=== PATIENT | male | born 1960 | race Caucasian/White ===

== ENCOUNTER 2023-11-13 21:39 | Emergency (ER) | payer OTHER, SELFPAY ==
[2023-11-13 21:44] VITALS: BP 159/85; PULSE 81; RESP 18; TEMP 36.6; O2SAT 98; BMI 30.8
--- NOTE | 2023-11-13 21:49 | ED.ABDPAIN ---
HPI - Abdominal Pain General Time Seen by Provider: 21:49 Date Seen: 11/13/23 Chief Complaint: Abdominal Pain Stated Complaint: Abdominal Pain Time Seen by Provider: 11/13/23 21:40 Source: patient and RN notes reviewed Mode of arrival: ambulatory Limitations: no limitations History of Present Illness HPI narrative: Patient is a 63-year-old male coming to the ER with concern of lower abdominal pain that is worsened throughout the day. He states yesterday he felt a little crampy. He passed just a small amount of stool today, feels like he cannot defecate. He has noticed urinary frequency today. No dysuria or hematuria. He is felt a little chilled but no noted fevers. He has had a left inguinal hernia surgery 20 years ago. He notes the pain is periumbilical and then into the lower abdomen. He did eat dinner around 6:00 p.m., is maybe feeling a little nauseated. He has felt like he is burping more today, more this evening. He is feeling bloated. He denies any history of heart or lung problems. He is treated for hypertension and hyperlipidemia. Besides the left inguinal hernia repair, has had left rotator cuff surgery, is awaiting repair of his right rotator cuff. He has had a right knee replacement. Social alcohol use, last use a couple of beers yesterday while watching football. No tobacco products. Current medicines reported are 81 mg aspirin daily, atorvastatin, losartan, metoprolol. MD elicited complaint: abdominal pain Related Data Home Medications Medication Instructions Recorded Confirmed aspirin 81 mg capsule 81 mg PO DAILY 11/13/23 11/13/23 atorvastatin .ROUTE 11/13/23 losartan .ROUTE 11/13/23 metoprolol tartrate .ROUTE 11/13/23 Allergies Allergy/AdvReac Type Severity Reaction Status Date / Time No Known Drug Allergies Allergy Verified 11/13/23 21:43 Review of Systems Status of ROS Reports: 6 or more systems reviewed and unremarkable except as noted in History and below Exam Const: Vital Signs, click to edit/add: Vital Signs - 24 hr 11/13/23 21:44 11/13/23 22:42 11/13/23 23:35 Temperature 97.9 F Pulse Rate [Pulse Oximeter] 81 Respiratory Rate 18 Blood Pressure [Ri ght Upper Arm] 159/85 H 193/120 H 190/80 H Pulse Oximetry 98 95 Oxygen Delivery Me thod Room Air Room Air 63-year-old male is alert, interactive, no apparent distress. Sclera clear, conjugate gaze cheeks are flushed but no facial rash, speech is normal. Neck supple, no cervical adenopathy or thyromegaly masses or nodules. Lungs are clear, good air entry, no wheezing or crackles. CV regular rate and rhythm no murmur, normal S1-S2, no S3-S4. Abdomen is soft, mild suprapubic to right lower quadrant tenderness, maybe some mild periumbilical pain that is nonspecific. He does not have any rebound or guarding, do not feel any masses. Bowel sounds are present but seem hypoactive. Documenting provider has reviewed patient's vital signs: yes Course Course ED Course: This 63-year-old male certainly has concerning intra-abdominal pathology on examination and history. Do believe that entities such is possible urinary tract infection, appendicitis, diverticulitis, possible partial bowel obstruction or all considerations. We will be doing CT imaging, get a full complement of labs including urinalysis. Will treat him with a L of normal saline over 2 hours, 4 mg IV Zofran and 15 mg IV Toradol for pain management to start with. He is currently hemodynamically stable. Reevaluation(s) Time of Reevaluation #1: 00:10 Reevaluation #1: Patient is feeling more comfortable. Reviewed with him that we are waiting radiology reading of his CT. Did review with him that I believe that I see kidney stone going into the right side of the bladder but need confirmation from radiology. Time of Reevaluation #2: 00:24 Reevaluation #2: Have reviewed CT report of 4 mm stone going into the bladder. We have discussed management. He is comfortable still, will dispense Toradol from [employer]. Discharge to home. Vital Signs Vital signs: Initial Vital Signs Temperature 97.9 F 11/13/23 21:44 Temperature Source Temporal Artery Scan 11/13/23 21:44 Pulse Rate 81 11/13/23 21:44 Respiratory Rate 18 11/13/23 21:44 Blood Pressure 159/85 H 11/13/23 21:44 Blood Pressure Mean 109 H 11/13/23 21:44 Blood Pressure Position Sitting 11/13/23 21:44 Pulse Oximetry 98 11/13/23 21:44 Oxygen Delivery Method Room Air 11/13/23 21:44 Vital Signs Temperature 97.9 F 11/13/23 21:44 Pulse Rate 81 11/13/23 21:44 Respiratory Rate 18 11/13/23 21:44 Blood Pressure 159/85 H 11/13/23 21:44 Pulse Oximetry 98 11/13/23 21:44 Oxygen Delivery Method Room Air 11/13/23 21:44 Temperature 97.9 F 11/13/23 21:44 Pulse Rate 81 11/13/23 21:44 Respiratory Rate 18 11/13/23 21:44 Blood Pressure 190/80 H 11/13/23 23:35 Pulse Oximetry 95 11/13/23 22:42 Oxygen Delivery Method Room Air 11/13/23 22:42 Medications Administered Medications: Discontinued Medications Generic Name Dose Route Start Last Admin Trade Name Freq PRN Reason Stop Dose Admin Sodium Chloride 1,000 mls @ 500 mls/hr 11/13/23 22:04 11/14/23 00:00 0.9 % Sodium Chloride 1000 Ml IV 11/14/23 00:03 500 mls/hr .Q2H AMI Administration Ketorolac Tromethamine 15 mg 11/13/23 22:02 11/13/23 23:29 Ketorolac 15 Mg/Ml Inj IVP 11/13/23 22:03 15 mg ONCE ONE Administration Ondansetron HCl 4 mg 11/13/23 22:02 11/13/23 23:30 Ondansetron 2 Mg/Ml Inj IVP 11/13/23 22:03 4 mg ONCE ONE Administration MDM - Abdominal Pain Differential Diagnosis Differential diagnosis: Likely abdominal pain, acute appendicitis, constipation, diverticulitis and small bowel obstruction Lab Data Attestation: I reviewed the patient's lab results. Labs: Lab Results 11/13/23 11/13/23 Range/Units 22:16 22:45 WBC 10.19 (4.50-11.00) K/uL RBC 4.39 (4.30-5.90) m/uL Hgb 13.6 (13.5-17.5) gm/dL Hct 41.1 (37.0-53.0) % MCV 94 (80-100) fL MCH 31 (26-34) pg MCHC 33 (32-36) gm/dL RDW Coeff of Brendon 12.8 (11.5-15.5) % Plt Count 214 (140-440) K/uL Neut % (Auto) 61.7 (42.0-72.0) % Lymph % (Auto) 23.6 (20-44) % [place] % (Auto) 10.5 (0.0-11.0) % Eos % (Auto) 3.2 (0.0-7.0) % Baso % (Auto) 0.3 (0.0-3.0) % Neut # (Auto) 6.29 (1.7-7.0) K/uL Lymph # (Auto) 2.40 (0.90-2.90) K/uL [place] # (Auto) 1.10 H (0.00-0.90) K/UL Eos # (Auto) 0.33 (0.00-0.50) K/uL Baso # (Auto) 0.03 (0.00-0.30) K/uL Abs Immat Gran (auto) 0.07 (0.00-0.30) K/uL Imm/Tot Granulo (auto) 0.7 % Sodium 137 (135-149) mmol/L Potassium 3.7 (3.6-5.1) mmol/L Chloride 104 (96-114) mmol/L Carbon Dioxide 25 (20-32) mmol/L Anion Gap 8 (7-15) mEq/L BUN 20 (7-30) mg/dL Creatinine 1.2 (0.5-1.5) mg/dL Estimated Creat Clear 75.16 Estimated GFR 69 ml/min Glucose 135 H (60-115) mg/dL Lactate 1.1 (0.5-1.9) mmol/L Calcium 8.6 (8.4-10.6) mg/dL Total Bilirubin 0.2 (0.1-1.5) mg/dL AST 23 (12-35) U/L ALT 25 (4-50) U/L Alkaline Phosphatase 55 (40-150) U/L C-Reactive Protein 0.7 (0.5-1.0) mg/dL Total Protein 6.8 (6.0-8.3) g/dL Albumin 4.3 (3.3-5.0) g/dL Urine Color Yellow (Yellow) Urine Appearance Clear (Clear) Urine pH 5.5 (5.0-8.5) Ur Specific [place] 1.010 (1.000-1.030) Urine Protein Negative (Negative) Urine Glucose (UA) Negative (Negative) Urine Ketones Negative (Negative) Urine Blood 2+ A (Negative) Urine Nitrite Negative (Negative) Urine Bilirubin Negative (Negative) Urine Urobilinogen 0.2 (0.2-1.0) Ur Leukocyte Esterase Negative (Negative) Urine RBC 0-2 (0-2) Urine WBC 0-2 (0-5) Ur Squamous Epith Cells Few (None-Few) Urine Bacteria None (None) Imaging Data CT scan - abdomen: Attestation: I have reviewed the pertinent imaging results. Radiologist's impression: Patient: ELROY MELENDEZ Facility:?[facility] Patient ID:?[id number] Site Patient ID:?[id number]. Site :?[id number] Study:?CT Abdomen/Pelvis W/ISOVUE 370 95CC-11/13/2023 11:16:05 PM Ordering Physician:Maude Manuel Final Report: INDICATION: Lower abdominal pain. TECHNIQUE: Multiplanar CT examination of the abdomen and pelvis were acquired after the administration of 95 mL Isovue 370 intravenously and oral contrast. COMPARISON: None. FINDINGS: Lower chest: Linear bandlike opacifications of the lung bases likely due to subsegmental atelectasis and/or scarring. Dependent atelectasis. Normal heart size. No focal consolidation there are no pleural effusions or pneumothorax. Liver: Diffuse hepatic steatosis. Gallbladder/Biliary: Normal. No biliary ductal dilitation. Pancreas: Normal. Spleen: Normal. Adrenal Glands: Normal. Kidneys/ureters: Subtle delayed nephrogram of the right kidney, with mild perinephric fat stranding and mild hydroureteronephrosis to the level of the right ureterovesical junction (2:39), where there is an obstructive 4 mm urinary calculus. The left kidney is unremarkable. No left-sided hydroureter or obstructive calculus. Bladder: Unremarkable. Bowel: No obstruction or bowel wall thickening. The appendix is normal. No significant colonic diverticulosis. Pelvic organs: Unremarkable. Peritoneum: No free fluid or pneumoperitoneum. Vessels: Normal. Portal vein remains patent. No significant atherosclerotic disease. Lymph Nodes: No lymphadenopathy. Abdominal Wall/Soft Tissues: Unremarkable. Bones: Degenerative changes of the visualized thoracolumbar spine. No acute osseous abnormalities. IMPRESSION: Mild right-sided hydroureteronephrosis to the level of the distal right ureterovesical junction with there is an obstructive 4 mm urinary calculus. Please note that all CT scans at this facility use dose modulation, iterative reconstruction, and/or weight-based dosing when appropriate to reduce radiation dose to as low as reasonably achievable. Dictated by Diego Montoya MD @ 11/14/2023 12:21:24 AM (Electronic Signature) Discharge Plan Discharge Clinical Impression: Renal colic on right side Patient Disposition: Home, Self-Care Condition: Stable Instructions: Kidney Stones (ED), Renal Colic (ED) Additional Instructions: Can use the Toradol for more severe pain, otherwise use Tylenol 1000 mg 3 times a day baseline for pain. Drink plenty of fluids. It is likely that your symptoms will resolve shortly, stone is going into the bladder. If you are not improving in your symptoms over the next week, develops severe abdominal pain, have abdominal pain associated with vomiting or fever, do need to be re-evaluated. Follow-up with a primary care provider when you get home to review development of kidney stones and further management. Activity Level: Activity as Tolerated Prescriptions: No Action metoprolol tartrate .ROUTE aspirin 81 mg capsule 81 mg PO DAILY atorvastatin .ROUTE losartan .ROUTE Follow Up/Referrals: Provider,Not a Local [Primary Care Provider] - Stand Alone Forms: [employer] Info Instructions
--- NOTE | 2023-11-13 22:04 | CRLHL7_ITS ---
For Patients: As a result of the Century Cures Act, medical imaging exams and procedure reports are released immediately into your electronic medical record. You may view this report before your referring provider. If you have questions, please contact your health care provider. INDICATION: Lower abdominal pain. TECHNIQUE: Multiplanar CT examination of the abdomen and pelvis were acquired after the administration of 95 mL Isovue 370 intravenously and oral contrast. COMPARISON: None. FINDINGS: Lower chest: Linear bandlike opacifications of the lung bases likely due to subsegmental atelectasis and/or scarring. Dependent atelectasis. Normal heart size. No focal consolidation there are no pleural effusions or pneumothorax. Liver: Diffuse hepatic steatosis. Gallbladder/Biliary: Normal. No biliary ductal dilitation. Pancreas: Normal. Spleen: Normal. Adrenal Glands: Normal. Kidneys/ureters: Subtle delayed nephrogram of the right kidney, with mild perinephric fat stranding and mild hydroureteronephrosis to the level of the right ureterovesical junction (2:39), where there is an obstructive 4 mm urinary calculus. The left kidney is unremarkable. No left-sided hydroureter or obstructive calculus. Bladder: Unremarkable. Bowel: No obstruction or bowel wall thickening. The appendix is normal. No significant colonic diverticulosis. Pelvic organs: Unremarkable. Peritoneum: No free fluid or pneumoperitoneum. Vessels: Normal. Portal vein remains patent. No significant atherosclerotic disease. Lymph Nodes: No lymphadenopathy. Abdominal Wall/Soft Tissues: Unremarkable. Bones: Degenerative changes of the visualized thoracolumbar spine. No acute osseous abnormalities. IMPRESSION: Mild right-sided hydroureteronephrosis to the level of the distal right ureterovesical junction with there is an obstructive 4 mm urinary calculus. Please note that all CT scans at this facility use dose modulation, iterative reconstruction, and/or weight-based dosing when appropriate to reduce radiation dose to as low as reasonably achievable. Dictated by Diego Montoya MD @ 11/14/2023 12:21:24 AM (Electronically Signed)
[2023-11-13 22:24] LABS: Lactate* 1.1 mmol/L (0.5-1.9)
[2023-11-13 22:37] LABS: Basophils Absolute Auto 0.03 K/uL (0.00-0.30); Basophils Percent Auto 0.3 % (0.0-3.0); Eosinophils Absolute Auto 0.33 K/uL (0.00-0.50); Eosinophils Percent Auto 3.2 % (0.0-7.0); Hematocrit 41.1 % (37.0-53.0); Hemoglobin* 13.6 gm/dL (13.5-17.5); Immature Granulocytes Abs Auto 0.07 K/uL (0.00-0.30); Immature Granulocytes Pct Auto 0.7 %; Lymphocytes Percent Auto 23.6 % (20-44); Mean Corpuscular HGB Conc 33 gm/dL (32-36); Mean Corpuscular Hemoglobin 31 pg (26-34); Mean Corpuscular Volume 94 fL (80-100); Monocytes Percent Auto 10.5 % (0.0-11.0); Neutrophils Absolute Auto 6.29 K/uL (1.7-7.0); Neutrophils Percent Auto 61.7 % (42.0-72.0); Platelet Count* 214 K/uL (140-440); RDW Coefficient of Variation % 12.8 % (11.5-15.5); Red Blood Count 4.39 m/uL (4.30-5.90); White Blood Count* 10.19 K/uL (4.50-11.00)
[2023-11-13 22:39] LABS: Albumin* 4.3 g/dL (3.3-5.0); Chloride* 104 mmol/L (96-114); Sodium* 137 mmol/L (135-149)
[2023-11-13 22:40] LABS: Potassium* 3.7 mmol/L (3.6-5.1)
[2023-11-13 22:42] VITALS: BP 193/120; O2SAT 95
[2023-11-13 22:42] LABS: Alkaline Phosphatase* 55 U/L (40-150); Anion Gap 8 mEq/L (7-15); Aspartate Amino Transferase* 23 U/L (12-35); Bilirubin Total* 0.2 mg/dL (0.1-1.5); Carbon Dioxide* 25 mmol/L (20-32); Creatinine* 1.2 mg/dL (0.5-1.5); Est. Creatinine Clearance* 75.16; Estimated Glomerular Filt Rate 69 ml/min; Total Protein* 6.8 g/dL (6.0-8.3)
[2023-11-13 22:43] LABS: Alanine Aminotransferase* 25 U/L (4-50); Blood Urea Nitrogen* 20 mg/dL (7-30); Calcium* 8.6 mg/dL (8.4-10.6); Glucose* 135 mg/dL (60-115)
[2023-11-13 22:45] LABS: C Reactive Protein* 0.7 mg/dL (0.5-1.0)
[2023-11-13 22:53] LABS: Slide Review Reflex No
[2023-11-13 22:56] LABS: Appearance Urine Clear (Clear); Bilirubin Urine Negative (Negative); Blood Urine 2+ (Negative); Color Urine Yellow (Yellow); Glucose Urine Negative (Negative); Ketones Urine Negative (Negative); Leukocyte Esterase Urine Negative (Negative); Nitrite Urine Negative (Negative); Protein Urine Negative (Negative); Urobilinogen Urine 0.2 (0.2-1.0); pH Urine 5.5 (5.0-8.5)
[2023-11-13 23:09] LABS: RBC Urine 0-2 (0-2); Squamous Epithelial Cell Urine Few (None-Few); WBC Urine 0-2 (0-5)
--- NOTE | 2023-11-13 23:16 | PC.NURSE ---
Pt return from CT. C/O of mid belly off to right side discomfort. Noted b/p high. Will recheck
[2023-11-13] MEDS: KETOROLAC 15 MG/ML inj IVP (23:29)
[2023-11-13] MEDS: ONDANSETRON 2 MG/ML inj 4 MG IVP (23:30)
--- NOTE | 2023-11-13 23:31 | PC.NURSE ---
Meds given as ordered. Repeat with larger cuff 193/120. Will do tika cuff pressure
[2023-11-13 23:35] VITALS: BP 190/80
[2023-11-14] MEDS: 0.9 % SODIUM CHLORIDE 1000 ml 1,000 ML 500 ML IV
== END 2023-11-14 00:42 | disposition home or self-care (01) ==
PROVIDERS: Emergency Provider Family Medicine
DX: N23 Unspecified renal colic (principal)
CPT/HCPCS: 36415; 74177; 80053; 81001; 83605; 85025; 86140; 96374; 96375; 99284; J1885; J2405; J7030; Q9967

== ENCOUNTER 2023-12-10 06:19 | Emergency (ER) | payer OTHER, SELFPAY ==
[2023-12-10 06:27] VITALS: BP 145/78; PULSE 91; RESP 18; TEMP 36.8; O2SAT 99; BMI 30.8
--- NOTE | 2023-12-10 06:31 | ED_ITS ---
HPI - General Adult General Chief complaint: Dizziness/Vertigo Stated complaint: dizzy/lightheaded Time Seen by Provider: 12/10/23 06:26 History of Present Illness HPI narrative: went to bed feeling fine, woke up around 0500 feeling dizzy like room spinning. states cold s/s for last few weeks. denies any other symptoms going on. last cpl weeks changes to his HTN meds , HCTZ 63-year-old man presenting to the emergency department with complaint of what is initially described as some combination of dizziness and lightheadedness; like my equilibrium is off. Better if he holds his head still. Seems to be worse when he was rolling over onto his right side. No chest pain or shortness of breath. No irregular heartbeats. No visual changes. He suspects he probably did rollover in bed shortly before. He has had some head cold symptoms with some congestion over the last few weeks. Does have ringing in his left ear. No fever. Changes were made to medications for high blood pressure 2 weeks ago when his hydrochlorothiazide was doubled to 25 mg. Does take a beta-mary in the form of metoprolol: When I ask him why, he says bed family history of heart disease and rapid heart rates he says. Does not sound as though he has himself however heart failure nor has he had a heart attack. Normally would take an aspirin but this was discontinued last week as he is anticipating surgery for right rotator cuff repair. Continues to take his atorvastatin. Related Data Home Medications Medication Instructions Recorded Confirmed aspirin 81 mg capsule 81 mg PO DAILY 11/13/23 11/13/23 atorvastatin .Route 11/13/23 losartan .Route 11/13/23 metoprolol tartrate .Route 11/13/23 hydrochlorothiazide 12.5 mg capsule 12.5 mg PO DAILY 12/10/23 12/10/23 Previous Rx's Medication Instructions Recorded diazepam 5 mg tablet (Valium) 5 mg PO BID PRN dizziness #5 tabs 12/10/23 meclizine 25 mg tablet 25 mg PO TID #15 tabs 12/10/23 Allergies Allergy/AdvReac Type Severity Reaction Status Date / Time No Known Drug Allergies Allergy Verified 11/13/23 21:43 Review of Systems Status of ROS: Reports: 6 or more systems reviewed and unremarkable except as noted in History and below Exam Narrative: Exam Narrative: Directing communication style. NAD. Skin is warm and dry. Head looks atraumatic. Sitting up for rotating his head causes more symptoms. Holding still he reports that they. I asked him about closing his eyes and as he does so though he bends his head forward noting that symptoms exacerbated again. On review later without head movement isolating just eye closure, symptoms are only improved. TMs bilaterally are clear. Cranial nerves 2-12 are intact. No nystagmus and extraocular movements are full. Head impulse testing appeared to be normal. He then reports his stomach is ?flipping? but denies nausea. In dimmed room pupils are 3 mm and briskly reactive and accommodating. He sounds subtly congested in the nasopharynx. Oropharynx is moist. No facial swelling erythema or tenderness. Lungs are clear. Heart in mildly elevated rate but in a regular rhythm. No murmur rub or gallop identified. Moving all extremities fluidly without difficulty other than expected limitation to right shoulder. Well-perfused peripherally without lower extremity edema. Const: Vital Signs, click to edit/add: Vital Signs - 24 hr 12/10/23 06:27 Temperature 98.2 F Pulse Rate [Pulse Oximeter] 91 Respiratory Rate 18 Blood Pressure [Ri ght Upper Arm] 145/78 H Pulse Oximetry 99 Oxygen Delivery Me thod Room Air Documenting provider has reviewed patient's vital signs: yes Course Vital Signs Vital signs: Initial Vital Signs Temperature 98.2 F 12/10/23 06:27 Temperature Source Temporal Artery Scan 12/10/23 06:27 Pulse Rate 91 12/10/23 06:27 Respiratory Rate 18 12/10/23 06:27 Blood Pressure 145/78 H 12/10/23 06:27 Blood Pressure Mean 100 12/10/23 06:27 Blood Pressure Position Sitting 12/10/23 06:27 Pulse Oximetry 99 12/10/23 06:27 Oxygen Delivery Method Room Air 12/10/23 06:27 Vital Signs Temperature 98.2 F 12/10/23 06:27 Pulse Rate 91 12/10/23 06:27 Respiratory Rate 18 12/10/23 06:27 Blood Pressure 145/78 H 12/10/23 06:27 Pulse Oximetry 99 12/10/23 06:27 Oxygen Delivery Method Room Air 12/10/23 06:27 Temperature 98.2 F 12/10/23 06:27 Pulse Rate 60 12/10/23 08:00 Respiratory Rate 18 12/10/23 06:27 Blood Pressure 145/78 H 12/10/23 06:27 Pulse Oximetry 97 12/10/23 08:00 Oxygen Delivery Method Room Air 12/10/23 06:27 Medications Administered Medications: Discontinued Medications Generic Name Dose Route Start Last Admin Trade Name [place] PRN Reason Stop Dose Admin Diazepam 5 mg 12/10/23 06:54 12/10/23 07:22 Diazepam 5 Mg/Ml Inj IV 12/10/23 06:55 5 mg ONCE ONE Administration Sodium Chloride 1,000 mls @ 1,000 mls/hr 12/10/23 06:54 12/10/23 07:22 0.9 % Sodium Chloride 1000 Ml IV 12/10/23 07:53 1,000 mls/hr .Q1H ONE Administration Medical Decision Making MDM Narrative Medical decision making narrative: This would seem to be a peripheral vertigo an furthermore onset is of uncertain duration should this be more of an occipital stroke. Symptoms seem worse with head rotation to the right as well as moving head down/looking down. Head impulse testing though does not clearly support a peripheral etiology. Not seem to be cardiac in origin. Will check labs though likely normal chemistries. EKG pending. Will give IV fluids and test dose of Valium. If markedly improved I think this is more suspicious for peripheral vertigo. If equivocal would continue workup for potential CVA. On reassessment notes feeling markedly improved. Demonstrates movement without significant symptoms. Still pending about 500-600 mL of fluids. I readjusted the IV and is flowing faster. With this improvement with Valium to this degree I think more likely this is peripheral. Anticipating departure after completion of IV fluids. Labs are overall reassuring. EKG as below On reassessment again observed to be ambulating and transitioning without any difficulty. Feels better. See patient discharge plan Lab Data Lab results reviewed: Yes I reviewed the patient's lab results Labs: Lab Results 12/10/23 Range/Units 07:10 WBC 4.35 L (4.50-11.00) K/uL RBC 4.34 (4.30-5.90) m/uL Hgb 13.3 L (13.5-17.5) gm/dL Hct 40.3 (37.0-53.0) % MCV 93 (80-100) fL MCH 31 (26-34) pg MCHC 33 (32-36) gm/dL RDW Coeff of Brendon 12.2 (11.5-15.5) % Plt Count 214 (140-440) K/uL Neut % (Auto) 51.3 (42.0-72.0) % Lymph % (Auto) 30.1 (20-44) % [place] % (Auto) 11.0 (0.0-11.0) % Eos % (Auto) 7.1 H (0.0-7.0) % Baso % (Auto) 0.5 (0.0-3.0) % Neut # (Auto) 2.20 (1.7-7.0) K/uL Lymph # (Auto) 1.30 (0.90-2.90) K/uL [place] # (Auto) 0.50 (0.00-0.90) K/UL Eos # (Auto) 0.30 (0.00-0.50) K/uL Baso # (Auto) 0.00 (0.00-0.30) K/uL Abs Immat Gran (auto) 0.00 (0.00-0.30) K/uL Imm/Tot Granulo (auto) 0.0 % Sodium 139 (135-149) mmol/L Potassium 4.1 (3.6-5.1) mmol/L Chloride 104 (96-114) mmol/L Carbon Dioxide 25 (20-32) mmol/L Anion Gap 10 (7-15) mEq/L BUN 24 (7-30) mg/dL Creatinine 1.0 (0.5-1.5) mg/dL Estimated Creat Clear 90.19 Estimated GFR 86 ml/min Glucose 128 H (60-115) mg/dL Calcium 8.7 (8.4-10.6) mg/dL Troponin I < 0.01 L (0.01-0.04) ng/mL C-Reactive Protein < 0.5 L (0.5-1.0) mg/dL NT-Pro-B Natriuret Pep < 20 pg/mL POC Troponin I 0.00 L (0.01-0.04) ng/ml ECG Data Attestation: I personally reviewed and interpreted this ECG as follows: (Normal sinus rhythm rate of 63) Discharge Plan Discharge Clinical Impression: Benign paroxysmal positional vertigo Patient Disposition: Home w/ Parent or Adult Condition: Improved Additional Instructions: Stay well-hydrated. You might consider taking meclizine, if not too sedating, regularly dosed 2-3 times daily over the next 4-5 days. I have also sent in a prescription of diazepam for you for more intense symptoms. This is a medication you received here today in addition to your normal saline fluids. This is more sedating than meclizine. See handout on repositioning exercises. It seems that right ear is more affected. Look at the exercises pertaining to the right ear. Often people can have worsening of symptoms initially, the 1st couple rounds, when attempting these maneuvers. Physical therapy can be helpful if symptoms are persisting otherwise. Return for marked increase in persistent symptoms, repeated vomiting, new and focal weakness or loss of sensation. Best wishes with your surgery. Prescriptions: New meclizine 25 mg tablet 25 mg PO TID Qty: 15 0RF diazepam [Valium] 5 mg tablet 5 mg PO BID PRN (Reason: dizziness) Qty: 5 0RF No Action metoprolol tartrate .Route aspirin 81 mg capsule 81 mg PO DAILY atorvastatin .Route losartan .Route hydrochlorothiazide 12.5 mg capsule 12.5 mg PO DAILY Follow Up/Referrals: Provider,Not a Local [Primary Care Provider] - Stand Alone Forms: [employer] Info Instructions
[2023-12-10 07:17] LABS: Basophils Percent Auto 0.5 % (0.0-3.0); Eosinophils Percent Auto 7.1 % (0.0-7.0); Hematocrit 40.3 % (37.0-53.0); Hemoglobin* 13.3 gm/dL (13.5-17.5); Lymphocytes Percent Auto 30.1 % (20-44); Mean Corpuscular HGB Conc 33 gm/dL (32-36); Mean Corpuscular Hemoglobin 31 pg (26-34); Mean Corpuscular Volume 93 fL (80-100); Neutrophils Percent Auto 51.3 % (42.0-72.0); Platelet Count* 214 K/uL (140-440); RDW Coefficient of Variation % 12.2 % (11.5-15.5); Red Blood Count 4.34 m/uL (4.30-5.90); White Blood Count* 4.35 K/uL (4.50-11.00)
[2023-12-10 07:19] LABS: Slide Review Reflex No
[2023-12-10] MEDS: diazePAM 5 MG/ML inj IV (07:22)
[2023-12-10] MEDS: 0.9 % SODIUM CHLORIDE 1000 ml 1,000 ML IV (07:22)
[2023-12-10 07:29] LABS: Chloride* 104 mmol/L (96-114); Potassium* 4.1 mmol/L (3.6-5.1); Sodium* 139 mmol/L (135-149)
[2023-12-10 07:32] LABS: Est. Creatinine Clearance* 90.19; Estimated Glomerular Filt Rate 86 ml/min
[2023-12-10 07:33] LABS: Anion Gap 10 mEq/L (7-15); Blood Urea Nitrogen* 24 mg/dL (7-30); Calcium* 8.7 mg/dL (8.4-10.6); Carbon Dioxide* 25 mmol/L (20-32); Glucose* 128 mg/dL (60-115)
[2023-12-10 07:37] VITALS: PULSE 72; O2SAT 98
[2023-12-10 07:38] LABS: C Reactive Protein* < 0.5 mg/dL (0.5-1.0)
[2023-12-10 07:45] LABS: Troponin I* < 0.01 ng/mL (0.01-0.04)
[2023-12-10 07:46] LABS: NT Pro B Type NatriureticPept* < 20 pg/mL
[2023-12-10 08:00] VITALS: PULSE 60; O2SAT 97
== END 2023-12-10 09:08 | disposition home or self-care (01) ==
PROVIDERS: Emergency Provider Family Medicine
DX: H81.11 Benign paroxysmal vertigo, right ear (principal)
CPT/HCPCS: 36415; 80048; 83880; 84484; 85025; 86140; 93005; 96374; 99284; J3360; J7030

== ENCOUNTER 2024-03-01 07:17 | Emergency (ER) | payer OTHER, SELFPAY ==
[2024-03-01 07:20] VITALS: BP 149/89; PULSE 69; RESP 16; TEMP 36.7; O2SAT 99; BMI 30.2
--- NOTE | 2024-03-01 07:51 | ED_ITS ---
HPI - General Adult General Date Seen: 03/01/24 Chief complaint: Cough Stated complaint: head cold Time Seen by Provider: 03/01/24 07:46 Source: patient Mode of arrival: ambulatory Limitations: no limitations History of Present Illness HPI narrative: Patient is a 63-year-old male who has been sick for the past three days with sinus pain and pressure, left ear pain, head congestion. No known exposures recently although a few of his coworkers had influenza a while ago. He has had no documented fever. No wheezing or shortness of breath. He has tried some Mucinex and Tylenol that helped very little. He is able to eat and drink. He does have general myalgias and fatigue. Related Data Home Medications Medication Instructions Recorded Confirmed aspirin 81 mg capsule 81 mg PO DAILY 11/13/23 03/01/24 atorvastatin 80 mg .Route DAILY 11/13/23 03/01/24 losartan 100 mg .Route DAILY 11/13/23 03/01/24 metoprolol tartrate 100 mg .Route BID 11/13/23 03/01/24 hydrochlorothiazide 12.5 mg capsule 12.5 mg PO DAILY 12/10/23 03/01/24 Previous Rx's Medication Instructions Recorded amoxicillin 875 mg tablet 875 mg PO BID #20 tabs 03/01/24 Allergies Allergy/AdvReac Type Severity Reaction Status Date / Time No Known Drug Allergies Allergy Verified 03/01/24 07:26 Review of Systems Narrative: Review of systems is outlined above otherwise noted to be negative. [facility] Social History Smoking Status: Never smoker Do you use any of these nicotine containing products: None Second hand tobacco smoke exposure: No How often do you have a drink containing alcohol: 4 or more times a week How many standard drinks containing alcohol do you have on a typical day: 5 or 6 AUDIT-C Alcohol total score: 6 Non-prescribed substance use: denies use Exam Narrative: Exam Narrative: Vitals noted. HEENT: Conjunctiva clear. Right TM is normal. Left is dull and red. Posterior pharynx is erythematous without exudate. Neck is supple without adenopathy, thyromegaly, carotid bruit. Lungs: Coarse but Clear to auscultation in all [place]. No wheezes, rales, rhonchi. Heart: Regular rate and rhythm without murmur. Extremities: No cyanosis or edema. Good distal pulses. Skin: No abnormalities noted of the exposed skin. Neurologic: Awake, alert, fully oriented. Neurologic exam is nonfocal. Const: Vital Signs, click to edit/add: Vital Signs - 24 hr 03/01/24 07:20 Temperature 98.1 F Pulse Rate [Right Pulse Oximeter] 69 Respiratory Rate 16 Blood Pressure [Ri ght Upper Arm] 149/89 H Pulse Oximetry 99 Oxygen Delivery Me thod Room Air Course Course ED Course: Patient is seen and examined. Triple swab was done in triage. Reevaluation(s) Reevaluation #1: Triple swab is negative. Vital Signs Vital signs: Initial Vital Signs Temperature 98.1 F 03/01/24 07:20 Temperature Source Temporal Artery Scan 03/01/24 07:20 Pulse Rate 69 03/01/24 07:20 Respiratory Rate 16 03/01/24 07:20 Blood Pressure 149/89 H 03/01/24 07:20 Blood Pressure Mean 109 H 03/01/24 07:20 Pulse Oximetry 99 03/01/24 07:20 Oxygen Delivery Method Room Air 03/01/24 07:20 Vital Signs Temperature 98.1 F 03/01/24 07:20 Pulse Rate 69 03/01/24 07:20 Respiratory Rate 16 03/01/24 07:20 Blood Pressure 149/89 H 03/01/24 07:20 Pulse Oximetry 99 03/01/24 07:20 Oxygen Delivery Method Room Air 03/01/24 07:20 Temperature 98.1 F 03/01/24 07:20 Pulse Rate 69 03/01/24 07:20 Respiratory Rate 16 03/01/24 07:20 Blood Pressure 149/89 H 03/01/24 07:20 Pulse Oximetry 99 03/01/24 07:20 Oxygen Delivery Method Room Air 03/01/24 07:20 Medical Decision Making Lab Data Labs: Lab Results 03/01/24 Range/Units 07:28 SARS-CoV-2 (PCR) Negative SARS-CoV-2 (Negative) Influenza Type A (PCR) Negative PCR FLU A (Negative) Influenza Type B (PCR) Negative PCR FLU B (Negative) RSV (PCR) Negative PCR RSV (Negative) Discharge Plan Discharge Clinical Impression: Acute left otitis media, Sinusitis Patient Disposition: Home, Self-Care Condition: Stable Additional Instructions: Start amoxicillin 875 mg b.i.d. times 10 days. Continue Mucinex, Tylenol, ibuprofen. Follow-up if symptoms are worsening or not improving. Prescriptions: New amoxicillin 875 mg tablet 875 mg PO BID Qty: 20 0RF No Action metoprolol tartrate 100 mg .Route BID aspirin 81 mg capsule 81 mg PO DAILY atorvastatin 80 mg .Route DAILY losartan 100 mg .Route DAILY hydrochlorothiazide 12.5 mg capsule 12.5 mg PO DAILY Patient Comments: increased to 25 mg Follow Up/Referrals: Provider,Not a Local [Primary Care Provider] - Stand Alone Forms: [employer] Info Instructions
[2024-03-01 08:18] LABS: PCR FLU A Negative PCR FLU A (Negative); PCR FLU B Negative PCR FLU B (Negative); PCR RSV Negative PCR RSV (Negative); SARS PCR* Negative SARS-CoV-2 (Negative)
== END 2024-03-01 09:35 | disposition home or self-care (01) ==
PROVIDERS: Emergency Provider Family Medicine
DX: H66.92 Otitis media, unspecified, left ear (principal)
CPT/HCPCS: 87631; 99282; 99283

== ENCOUNTER 2024-03-18 07:30 | Outpatient (RCR) | payer OTHER, SELFPAY | END 2024-07-02 15:39 | disposition home or self-care (01) | PROVIDERS: Visit Provider Physician Assistant | DX: S46.011D Strain of muscle(s) and tendon(s) of the rotator cuff of right shoulder, subsequent encounter (principal); M25.511 Pain in right shoulder; Z74.09 Other reduced mobility; R29.898 Other symptoms and signs involving the musculoskeletal system; Z98.890 Other specified postprocedural states; Z51.89 Encounter for other specified aftercare | CPT/HCPCS: 97110; 97162 ==